=== PATIENT | female | born 2000 | race Two or more races ===

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

== ENCOUNTER 2021-03-22 21:08 | Emergency (ER) | payer MEDICAID ==
[~2021-03-22] VITALS: Ht 154.9 cm; Wt 86.2 kg
[2021-03-22 21:08] VITALS: BP 139/98
[2021-03-22 22:09] LABS: Urine Bacteria FEW /hpf (None Seen); Urine Blood Negative /uL (Negative); Urine Specific Gravity 1.027 (1.001-1.035); Urine WBC 13 /hpf (0 - 5)
[2021-03-22] MEDS ORDERED: IBUPROFEN 600 MG TAB PO ONE (23:00)
[2021-03-22] MEDS ORDERED: cefTRIAXone SOD 1,000 MG VL IM ONE (23:00)
[2021-03-22 23:11] LABS: Basophils # (auto) 0 10 ^3/uL (0-0.2); Basophils % (auto) 0.3 % (0.0-2.0); Eosinophils # (auto) 0.2 10 ^3/uL (0-0.8); Eosinophils % (auto) 1.4 % (0.0-7.0); Hematocrit 43.7 % (36.0-46.0); Hemoglobin 14.9 g/dL (12.2-16.2); Lymphocytes # (auto) 4.4 10 ^3/uL (0.4-5.4); Lymphocytes % (auto) 35.4 % (10.0-50.0); Mean Corpuscular Hemoglobin 30.8 pg (28.0-32.0); Mean Corpuscular Volume 90.6 fL (80.0-100.0); Monocytes # (auto) 0.6 10 ^3/uL (0-1.3); Monocytes % (auto) 5.1 % (0.0-12.0); Neutrophils # (auto) 7.2 10 ^3/uL (1.6-8.6); Neutrophils % (auto) 57.8 % (37.0-80.0); Red Blood Cells 4.83 10^6/uL (4.0-5.20); Red Cell Distribution Width 13.2 % (11.8-14.3); White Blood Cell 12.4 10^3/uL (4.4-10.8)
[2021-03-22 23:26] LABS: Potassium 3.9 mmol/L (3.5-5.1)
[2021-03-22 23:33] LABS: Albumin 3.7 g/dL (3.4-5.0); BUN/Creatinine Ratio 21.6; Bilirubin, Total 0.4 mg/dL (0.2-1.0); Calcium 9.1 mg/dL (8.5-10.1); Total Protein 7.8 g/dL (6.4-8.2)
== END 2021-03-23 02:42 | disposition home or self-care (01) ==
LOC: ER 21:09
DX: N39.0 Urinary tract infection, site not specified (principal); Z88.2 Allergy status to sulfonamides
CPT/HCPCS: 36415; 80053; 81001; 81025; 83690; 84702; 85025